=== PATIENT | female | born 1935 | race Caucasian/White ===

== ENCOUNTER 2017-06-10 13:10 | Inpatient (IN) | payer OTHER ==
[~2017-06-10] VITALS: Ht 167.6 cm; Wt 52.7 kg
[2017-06-10] MEDS ORDERED: SODIUM CHLORIDE 0.9% 1,000ML IVBOLUS ONE (13:30)
[2017-06-10] MEDS ORDERED: SODIUM CHLORIDE FLUSH 10ML SYR IVF ONE (13:30)
[2017-06-10 13:59] LABS: HEMATOCRIT 35.5 % (34.6-47.8); HEMOGLOBIN 11.7 g/dL (11.7-16.4); WHITE BLOOD COUNT 5.8 x10^3/uL (3.4-10)
[2017-06-10] MEDS ORDERED: PLEASE ENTER HEIGHT AND WEIGHT MC SCH (14:00)
[2017-06-10 14:08] LABS: ASPARTATE AMINO TRANSFERASE 34 U/L (15-37); BLOOD UREA NITROGEN 10 mg/dL (7-18)
[2017-06-10 14:30] LABS: PATH.CAST-FLAG NOT PRESENT; SPERM-FLAG NOT PRESENT; SRC-FLAG NOT PRESENT; XTAL-FLAG NOT PRESENT; YLC-FLAG NOT PRESENT
[2017-06-10] MEDS ORDERED: CEFTRIAXONE PMX 1GM/50ML 50 ML IV ONE (15:00)
[2017-06-10] MEDS ORDERED: CEFTRIAXONE PMX 1GM/50ML 50 ML ONE (15:33)
[2017-06-10] MEDS ORDERED: MAG355OR38 PO (15:59)
[2017-06-10] MEDS ORDERED: ACET325T21 PO (15:59)
[2017-06-10] MEDS ORDERED: LORA0.5T PO (15:59)
[2017-06-10] MEDS ORDERED: COLE625T12 PO (15:59)
[2017-06-10] MEDS ORDERED: TRAZ50TA18 PO (15:59)
[2017-06-10] MEDS ORDERED: HYDR-3245 PO (16:06)
[2017-06-10] MEDS ORDERED: MIRT30TA4 PO (16:06)
[2017-06-10] MEDS ORDERED: AZAT50TA9 PO (16:06)
[2017-06-10] MEDS ORDERED: CHLO100T6 PO ×2 (16:06)
[2017-06-10] MEDS ORDERED: DOCU-186 PO (16:06)
[2017-06-10] MEDS ORDERED: BISACODYL 10 MG SUPP PR PRN (17:00)
[2017-06-10] MEDS ORDERED: DOCUSATE 100 MG CAPSULE PO PRN (17:00)
[2017-06-10] MEDS ORDERED: ACETAMINOPHEN 325 MG TABLET PO PRN (17:00)
[2017-06-10] MEDS ORDERED: POLYETHYLENE GLYCOL 17 GM PACKET PO PRN (17:00)
[2017-06-10 17:07] VITALS: BP 136/71
[2017-06-10] MEDS: SODIUM CHLORIDE 0.9% 1,000 ML IV SCH (18:13)
[2017-06-10 20:37] VITALS: BP 124/70
[2017-06-10] MEDS: COLESEVELAM 625 MG TABLET PO SCH (21:00)
[2017-06-11 01:05] VITALS: BP 166/66
[2017-06-11] MEDS: SODIUM CHLORIDE 0.9% 1,000 ML IV SCH (02:30)
[2017-06-11 05:45] LABS: HEMATOCRIT 34.3 % (34.6-47.8); HEMOGLOBIN 11.4 g/dL (11.7-16.4); WHITE BLOOD COUNT 7.3 x10^3/uL (3.4-10)
[2017-06-11 06:00] LABS: ASPARTATE AMINO TRANSFERASE 31 U/L (15-37); BLOOD UREA NITROGEN 11 mg/dL (7-18)
[2017-06-11 08:00] VITALS: BP 161/70
[2017-06-11] MEDS ORDERED: MAGNESIUM SULFATE 1 GM/2 ML IVPush ONE (08:00)
[2017-06-11] MEDS ORDERED: POTASSIUM PHOSPHATE 22 MEQ in SODIUM CHLORIDE 0.9% 500 ML IV ONE ×2 (08:30→16:30)
[2017-06-11] MEDS ORDERED: MAGNESIUM SULFATE 1 GM in SODIUM CHLORIDE 0.9% 50 ML IV ONE (08:30)
[2017-06-11] MEDS: COLESEVELAM 625 MG TABLET PO SCH ×2 (09:00→20:42)
[2017-06-11] MEDS: AZATHIOPRINE 50 MG TABLET PO SCH (10:15)
[2017-06-11 13:59] VITALS: BP 155/77
[2017-06-11] MEDS: CEFTRIAXONE PMX 1GM/50ML 50 ML IV SCH (15:56)
[2017-06-11] MEDS ORDERED: MAGNESIUM SULFATE PMX 2GM/50ML 50 ML IV ONE (16:30)
[2017-06-11] MEDS: LACTOBACILLUS CHEW TABLET PO SCH ×2 (16:30→20:42)
[2017-06-11] MEDS: ENOXAPARIN 40 MG/0.4 ML SQ SCH (17:46)
[2017-06-11] MEDS: MIRTAZAPINE 15 MG TABLET PO SCH (20:42)
[2017-06-11 21:06] VITALS: BP 152/70
[2017-06-12 00:50] VITALS: BP 150/80
[2017-06-12 05:17] LABS: HEMATOCRIT 31.5 % (34.6-47.8); HEMOGLOBIN 10.5 g/dL (11.7-16.4); WHITE BLOOD COUNT 8.3 x10^3/uL (3.4-10)
[2017-06-12 05:35] LABS: BLOOD UREA NITROGEN 10 mg/dL (7-18)
[2017-06-12] MEDS: LACTOBACILLUS CHEW TABLET PO SCH ×4 (06:00→20:18)
[2017-06-12 08:00] VITALS: BP 127/65
[2017-06-12] MEDS: AZATHIOPRINE 50 MG TABLET PO SCH (09:00)
[2017-06-12] MEDS: COLESEVELAM 625 MG TABLET PO SCH ×2 (09:00→20:18)
[2017-06-12 14:00] VITALS: BP 142/70
[2017-06-12] MEDS ORDERED: POTASSIUM CHLORIDE 20 MEQ TAB.ER.PRT PO ONE (14:30)
[2017-06-12] MEDS ORDERED: POTASSIUM CHLORIDE 40 MEQ in SODIUM CHLORIDE 0.9% 500 ML IV ONE (16:30)
[2017-06-12] MEDS: CEFTRIAXONE PMX 1GM/50ML 50 ML IV SCH (16:57)
[2017-06-12] MEDS: ENOXAPARIN 40 MG/0.4 ML SQ SCH (17:43)
[2017-06-12] MEDS: MIRTAZAPINE 15 MG TABLET PO SCH (20:18)
[2017-06-12 20:27] VITALS: BP 146/83
[2017-06-13 01:48] VITALS: BP 161/87
[2017-06-13 02:10] VITALS: BP 150/73
[2017-06-13] MEDS: LACTOBACILLUS CHEW TABLET PO SCH ×4 (05:05→20:20)
[2017-06-13 05:42] LABS: BLOOD UREA NITROGEN 11 mg/dL (7-18)
[2017-06-13 05:47] LABS: HEMOGLOBIN 11.6 g/dL (11.7-16.4); WHITE BLOOD COUNT 13.3 x10^3/uL (3.4-10)
[2017-06-13 07:01] VITALS: BP 140/81
[2017-06-13] MEDS: AZATHIOPRINE 50 MG TABLET PO SCH (08:00)
[2017-06-13] MEDS: COLESEVELAM 625 MG TABLET PO SCH ×2 (08:00→20:20)
[2017-06-13 13:24] VITALS: BP 138/75
[2017-06-13] MEDS: CEFTRIAXONE PMX 1GM/50ML 50 ML IV SCH (15:34)
[2017-06-13 20:00] VITALS: BP 154/73
[2017-06-13] MEDS: MIRTAZAPINE 15 MG TABLET PO SCH (20:20)
[2017-06-13] MEDS: ENOXAPARIN 40 MG/0.4 ML SQ SCH (20:21)
[2017-06-14 02:00] VITALS: BP 152/71
[2017-06-14 05:58] LABS: HEMATOCRIT 39.2 % (34.6-47.8); WHITE BLOOD COUNT 10.8 x10^3/uL (3.4-10)
[2017-06-14] MEDS: LACTOBACILLUS CHEW TABLET PO SCH ×4 (06:00→20:33)
[2017-06-14 08:36] VITALS: BP_SYST 165; BP_SYST 171; BP_DIAS 74; BP_DIAS 80
[2017-06-14] MEDS: AZATHIOPRINE 50 MG TABLET PO SCH (09:00)
[2017-06-14] MEDS: COLESEVELAM 625 MG TABLET PO SCH ×2 (09:00→20:33)
[2017-06-14] MEDS ORDERED: POLYETHYLENE GLYCOL 17 GM PACKET PO PRN (14:30)
[2017-06-14] MEDS ORDERED: ACETAMINOPHEN 325 MG TABLET PO PRN (14:30)
[2017-06-14] MEDS ORDERED: BISACODYL 10 MG SUPP PR PRN (14:30)
[2017-06-14 16:25] VITALS: BP 129/74
[2017-06-14] MEDS: CEFTRIAXONE PMX 1GM/50ML 50 ML IV SCH (16:53)
[2017-06-14 20:04] VITALS: BP 130/64
[2017-06-14] MEDS: MIRTAZAPINE 15 MG TABLET PO SCH (20:33)
[2017-06-14] MEDS: ENOXAPARIN 40 MG/0.4 ML SQ SCH (20:34)
[2017-06-15 00:30] VITALS: BP 128/70
[2017-06-15] MEDS: LACTOBACILLUS CHEW TABLET PO SCH ×4 (05:51→21:00)
[2017-06-15 07:54] VITALS: BP 136/95
[2017-06-15] MEDS: AZATHIOPRINE 50 MG TABLET PO SCH (09:00)
[2017-06-15] MEDS: COLESEVELAM 625 MG TABLET PO SCH ×2 (09:00→21:00)
[2017-06-15 13:16] VITALS: BP 144/79
[2017-06-15 13:52] LABS: HEMOGLOBIN 12.6 g/dL (11.7-16.4)
[2017-06-15] MEDS: CEFTRIAXONE PMX 1GM/50ML 50 ML IV SCH (16:10)
[2017-06-15 18:41] VITALS: BP 138/71
[2017-06-15] MEDS: MIRTAZAPINE 15 MG TABLET PO SCH (21:00)
[2017-06-15] MEDS: ENOXAPARIN 40 MG/0.4 ML SQ SCH (21:10)
[2017-06-16 01:01] VITALS: BP 119/68
[2017-06-16] MEDS: LACTOBACILLUS CHEW TABLET PO SCH ×2 (06:00→11:00)
[2017-06-16] MEDS: COLESEVELAM 625 MG TABLET PO SCH (08:52)
[2017-06-16] MEDS: AZATHIOPRINE 50 MG TABLET PO SCH (08:52)
[2017-06-16 11:03] VITALS: BP 147/70
[2017-06-16 12:18] VITALS: BP 163/88
== END 2017-06-16 15:00 | disposition hospice, inpatient (51) | DRG 689 ==
LOC: ED 14:38 → EDIP 14:53 → 4WST 17:05
PROVIDERS: ADMIT Hospitalist; ATTEND Hospitalist
PROC: 0T9B70Z Drainage of Bladder with Drainage Device, Via Natural or Artificial Opening (ICD-10-PCS; principal; 2017-06-10)
DX: N39.0 Urinary tract infection, site not specified (principal); G93.41 Metabolic encephalopathy; E43 Unspecified severe protein-calorie malnutrition; Z68.1 Body mass index [BMI] 19.9 or less, adult; F02.80 Dementia in other diseases classified elsewhere, unspecified severity, without behavioral disturbance, psychotic disturbance, mood disturbance, and anxiety; F17.200 Nicotine dependence, unspecified, uncomplicated; G30.9 Alzheimer's disease, unspecified; K58.9 Irritable bowel syndrome, unspecified; R62.7 Adult failure to thrive; Z51.5 Encounter for palliative care; Z66 Do not resuscitate; Z80.8 Family history of malignant neoplasm of other organs or systems; Z82.49 Family history of ischemic heart disease and other diseases of the circulatory system; Z91.81 History of falling
CPT/HCPCS: 36415; 70450; 71010; 80048; 80053; 81001; 82140; 83605; 83735; 84100; 84145; 84443; 85025; 87040; 87077; 87086; 87186; 93005; 96374; J0696; J1650; J3475; J3480; J7500; J7030; J7040